=== PATIENT | female | born 1945 | race Caucasian/White ===

== ENCOUNTER 2022-12-10 15:55 | Outpatient (RCR) | payer MEDICARE, BC, SELFPAY ==
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
== END 2022-12-13 08:50 | disposition home or self-care (01) ==
PROVIDERS: Visit Provider Orthopaedic Surgery Sports Medicine
DX: M17.11 Unilateral primary osteoarthritis, right knee (principal); Z96.651 Presence of right artificial knee joint; R53.1 Weakness; M25.561 Pain in right knee; Z51.89 Encounter for other specified aftercare
CPT/HCPCS: 97110; 97162

== ENCOUNTER 2023-02-09 09:47 | Day surgery (SDC) | payer MEDICARE, BC, SELFPAY ==
[2023-02-09] VITALS (22 sets, daily range): BP systolic 100–150; BP diastolic 62–99; PULSE 68–103; RESP 14–18; TEMP 35.6–36.8; O2SAT 94–100; BMI 32.5
[2023-02-09] MEDS: SODIUM CHLORIDE 0.9 % (FLUSH) 10 ML SYRINGE IVF (10:30)
[2023-02-09] MEDS: ACETAMINOPHEN 500 MG TABLET 1000 MG PO ×3 (10:35→23:48)
[2023-02-09] MEDS: OXYCODONE (CR) 10 MG TAB.ER.12H PO (10:35)
[2023-02-09] MEDS: LACTATED RINGERS 1000 ML 1,000 ML 100 ML IV ×2 (10:35→14:02)
[2023-02-09] MEDS: CELECOXIB 200 MG CAPSULE PO (10:35)
[2023-02-09] MEDS: MIDAZOLAM HCL 1 MG/ML inj IVP (11:34)
[2023-02-09] MEDS: fentaNYL 100 MCG/2 ML inj IVP (11:34)
--- NOTE | 2023-02-09 11:45 | SUR.PREOP ---
TIME?OUT:?1134 PT/RN/MDA?VERIFICATION?OF?SURGICAL?SITE,?PROCEDURE,?AND?CONSENT OBTAINED?PRIOR?TO?INVASIVE?PROCEDURE.
--- NOTE | 2023-02-09 11:47 | P.NB_ITS ---
Nerve Block Nerve Block Time Seen by Provider: 11:40 Date Seen: 02/09/23 Type of block requested by surgeon for post-operative analgesia: geniculars Side: right Time out performed: Yes Verification of patient name: Yes Verification of date of : Yes Site marking: site marked Name of person performing procedure: Junaid Continuous monitoring Was continuous monitoring of O2 sat, B/P, glost kiln placer, recorded every 15 minutes?: Yes Procedure Checklist: sterile prep, needles and gloves Medications given in 5ml increments after negative aspiration: Ropivicaine %: 0.5 mL: 9 Needle gauge: 25 Patient tolerated procedure well: Yes Block Charges Block Charge (with Pro Fee): Genicular Nerve Block Use of Ultrasound Machine for Block: No
--- NOTE | 2023-02-09 11:47 | W.PM.NB ---
Nerve Block Nerve Block Time Seen by Provider: 11:40 Date Seen: 02/09/23 Type of block requested by surgeon for post-operative analgesia: adductor canal Side: right Time out performed: Yes Verification of patient name: Yes Verification of date of : Yes Site marking: site marked Name of person performing procedure: Junaid Continuous monitoring Was continuous monitoring of O2 sat, B/P, director energy, recorded every 15 minutes?: Yes Procedure Checklist: sterile prep, needles and gloves Ultrasound guided. Images saved: Yes Medications given in 5ml increments after negative aspiration: Ropivicaine %: 0.5 mL: 20 Needle gauge: 20 Decadron (mg): 10 Precedex (mcg): 25 Patient tolerated procedure well: Yes Additional comments: Needle noted adjacent to nerve Block Charges Block Charge (with Pro Fee): Femoral Nerve Use of Ultrasound Machine for Block: Yes- US Guidance/pain block
--- NOTE | 2023-02-09 11:47 | W.ANESCHARGE ---
Anesthesia Charges Start Date/Time Anesthesia Start Date: 02/09/23 Anesthesia Start Time: 11:53 Stop Date/Time Anesthesia Stop Date: 02/09/23 Anesthesia Stop Time: 14:44 Summary Extremes of Age - Over 70 or under 1: MDA
--- NOTE | 2023-02-09 12:13 | CRLHL7_ITS ---
For Patients: As a result of the Cures Act, medical imaging exams and procedure reports are released immediately into your electronic medical record. You may view this report before your referring provider. If you have questions, please contact your health care provider. Indication: Postop Technique: Two views right knee Findings/Impression: Hardware from a right total knee arthroplasty is in satisfactory position. Bone alignment is normal. No sign of acute fracture. Postop changes are within normal limits. Dictated by Josesito Davidson MD @ 02/10/2023 10:47:14 AM (Electronically Signed)
[2023-02-09] MEDS: CEFAZOLIN 2 GM in 0.9 % SODIUM CHLORIDE Mini-bag 100 ML IVPB ×2 (12:22→18:19)
[2023-02-09] MEDS: TRANEXAMIC ACID 100 MG/ML INJ 1000 MG IV (12:23)
--- NOTE | 2023-02-09 12:43 | P.ANES_ITS ---
Anesthesia Charges Start Date/Time Anesthesia Start Date: 02/09/23 Anesthesia Start Time: 11:53 Stop Date/Time Anesthesia Stop Date: 02/09/23 Anesthesia Stop Time: 14:44 Summary Extremes of Age - Over 70 or under 1: HERBARIUM WORKER
--- NOTE | 2023-02-09 13:45 | P.ORPRC_ITS ---
Procedure Note Date of procedure: 02/09/23 Procedure: PREOPERATIVE DIAGNOSIS: 1. Right knee osteoarthritis, primary, severe POSTOPERATIVE DIAGNOSIS: 1. Right knee osteoarthritis, primary, severe PROCEDURE: 1. Right total knee arthroplasty SURGEON: Duran Keating MD. POT LINING SUPERVISOR: Bill Bay PA-C - Of note, a skilled marketing administrative assistant was critical for this case to aid in patient positioning, tissue retraction, limb manipulation/positioning, and closure. ANESTHESIA: Spinal anesthetic IMPLANTS: DePuy J&J all cemented TKA - Attune PS femur size 4 narrow, size 3 tibia, 5 poly spacer, 32 mm patella TOURNIQUET: 90 min at 300 torr EBL: 50 ml COMPLICATIONS: None evident INDICATIONS: The patient is a pleasant 77-year-old female who has experienced severe right knee pain and difficulty bearing weight. Workup included x-rays which revealed severe osteoarthrosis in the knee. Given the deformity, the dysfunction, and the pain, as well as the failure of nonoperative management, recommendation was made for surgery. FINDINGS: Full-thickness chondral loss broadly throughout the lateral compartment given the valgus knee. Degenerative lateral and medial meniscus pathology. Significant patellofemoral chondromalacia and to lesser degree medial compartment chondromalacia present moderate effusion upon entering the joint. DESCRIPTION OF PROCEDURE: Following a thorough discussion of risks, benefits, and alternatives consent was obtained and the right knee was marked. The patient was brought to the operating room and placed supine on the operating table. Induction of anesthesia was undertaken. 2 g IV Ancef and 1 g tranexamic acid was administered within 1 hr of incision preoperatively. Proper time-out was performed identifying proper patient, site, procedure. The operative extremity was prepped and draped in the appropriate sterile fashion using ChloraPrep after the patient was positioned supine with all bony prominences well padded. A longitudinal, anterior, midline skin incision was made starting approximately 3cm proximal to the superior pole of the patella and advanced distal to the tibial tubercle. A median parapatellar arthrotomy was created. A medial subperiosteal sleeve was created with knife, leyva elevator and curved osteotome. The retropatellar fatpad was resected and the synovium in the suprapatellar pouch excised to visualize the anterior femoral cortex. Femoral preparation was performed via an intramedullary guide. Step drill allowed access into the femoral canal. The distal cutting guide was placed with 6 ? of valgus and 12 mm cut on the distal femur. Femur was sized using a posterior referencing guide as well as assessing the trans epicondylar axis and Whitesides line given the valgus knee. Ultimately, 3? of external rotation was found to be most appropriate to match the trans epicondylar axis and perpendicular Whitesides line providing appropriate rotation to the femur. This found have a best fit with the sizing noted above. The 4 in 1 cutting block was then placed, and the distal femur shaped accordingly. The box cut was then created and the trial implant inserted to confirm appropriate fit. We turned our attention to the proximal tibia. Extramedullary guide was utilized for cutting with the goal of being 90 degree cut from the mechanical axis of the tibia in the varus/valgus plane utilizing tibial crest as the primary alignment. Initially a 4 mm resection was performed from the medial tibial plateau. An additional 2 mm to require resection. Ultimately, balancing was achieved in both flexion and extension in both varus and valgus. The knee was able to achieve full extension as well comfortably. The patella was initially measured and found have a thickness of 22 mm. It was resected back to approximately 14 mm. It was sized to be a best fit with as noted above. This was drilled, trial placed. All trials were placed and found to have an excellent stability and balance. At this stage, trial implants were removed, the knee was thoroughly irrigated with normal saline, and the cement was mixed. After irrigation, the knee was thoroughly dried, and cement placed, with the real tibial and femoral implants placed along with the patella. Trial poly spacer was placed and confirmed to have excellent range of motion and full extension, and the real poly spacer opened and inserted. All extra cement was removed, and a 3 min Betadine soak performed. Finally, a final irrigation round with normal saline was performed. Closure performed with 0 Vicryl and #0 Stratafix for the quad tendon/retinaculum. 2-0 Vicryl for the subcutaneous and 4-0 Stratafix for subcuticular closure. Dressings were applied and the patient was awoken from anesthesia after the tourniquet deflated and transferred the PACU in stable condition. A skilled marketing administrative assistant was critical for this case to aid in patient positioning, tissue retraction, bone exposure, limb manipulation/positioning, patient safety, and closure. PLAN: 1. Weight bear as tolerated operative extremity. 2. 23 hr perioperative antibiotics. 3. Ice. 4. PT/OT consults for ambulation assistance/mobility education. 5. Social work consult for discharge planning. 6. DVT prophylaxis with at SCDs, Ramses Hose, and aspirin twice daily.
--- NOTE | 2023-02-09 15:20 | SUR.PHASEI ---
patient met discharge criteria per anesthesia
--- NOTE | 2023-02-09 16:48 | P.IMCN_ITS ---
Date of Consult Patient: Other Consult date: 02/09/23 Requesting Physician: Orthopedics Primary Care Provider: Not a Local Provider Consult Narrative Reason for consult: post op R TKA, HTN care Narrative: Saumya Clements is a 77 year old woman with advanced right gonarthrosis who undergoes an elective right total knee arthroplasty today with Dr. Duran Mckeon today without any apparent complications. Heretofore she had been using CBD supplement as needed for knee discomfort, in addition to more traditional measures. Discomfort not responsive to various nonpharmacologic and pharmacologic interventions and thus she elected to proceed with the total knee arthroplasty today. Review of Systems Status of ROS: Reports: 10 or more systems reviewed and unremarkable except as noted in History and below PFSH [facility] Medical History (Updated 02/09/23 @ 17:08 by Marciano Junior MD) Urge urinary incontinence ?N39.41 - Urge incontinence (ICD-10) Primary osteoarthritis of both knees ?M17.0 - Bilateral primary osteoarthritis of knee (ICD-10) Arthropathy of left hip ?M16.12 - Unilateral primary osteoarthritis, left hip (ICD-10) Insomnia ?G47.00 - Insomnia, unspecified (ICD-10) Hypertension ?I10 - Essential (primary) hypertension (ICD-10) Breast cancer ?C50.919 - Malignant neoplasm of unspecified site of unspecified female breast (ICD-10) Surgical History (Updated 02/09/23 @ 16:41 by Marciano Junior MD) Hx of hernia repair ?Z98.890 - Other specified postprocedural states (ICD-10) ?Z87.19 - Personal history of other diseases of the digestive system (ICD-10) History of partial mastectomy of right breast (~2013) ?Z90.11 - Acquired absence of right breast and nipple (ICD-10) Status post total replacement of right hip (~1997) ?Z96.641 - Presence of right artificial hip joint (ICD-10) Status post total replacement of left hip (~2006) ?Z96.642 - Presence of left artificial hip joint (ICD-10) History of lumbar surgery ?Z98.890 - Other specified postprocedural states (ICD-10) History of carpal tunnel release (~2013) ?Z98.890 - Other specified postprocedural states (ICD-10) History of right shoulder replacement (~06/2013) ?Z96.611 - Presence of right artificial shoulder joint (ICD-10) History of left knee replacement (10/28/21) ?Z96.652 - Presence of left artificial knee joint (ICD-10) Family History (Updated 02/09/23 @ 16:42 by Marciano Junior MD) Brother ETOH abuse High blood pressure Father Rheumatoid arthritis Myocardial infarction Mother Breast cancer TIA (transient ischemic attack) Social History (Updated 02/09/23 @ 16:44 by Marciano Junior MD) Narrative: . Retired. Lives with . Never used tobacco products. Does not drink alcoholic beverages. What is your current living situation?: I presently have a place to live In the past 12 months, utilities in danger of being shut off: no In the past 12 mos, have been you worried that your food would run out before you had money to buy more?: never true In the past 12 mos, the food you bought just didn't last and you didn't have money to buy more?: never true Smoking Status: Never smoker Do you use any of these nicotine containing products: None How often do you have a drink containing alcohol: never How many standard drinks containing alcohol do you have on a typical day: 1 or 2 How often do you have six or more drinks on one occasion: Never AUDIT-C Alcohol total score: 0 Non-prescribed substance use: denies use Caffeine: No How often does anyone, including family, friends and others, physically hurt you : never How often does anyone, including family, friends and others, insult or talk down to you: never How often does anyone, including family, friends and others, threaten you with harm: never How often does anyone, including family, friends and others, scream or curse at you: never service: No Meds Home Medications and Allergies Home Medications Medication Instructions Recorded Confirmed Type aspirin 81 mg tablet,delayed 81 mg PO DAILY 11/11/22 02/09/23 History release multivitamin 1 tab PO DAILY 11/11/22 02/09/23 History olmesartan 40 mg tablet 40 mg PO DAILY 11/11/22 02/09/23 History paroxetine HCl 40 mg tablet 40 mg PO DAILY 11/11/22 02/09/23 History Allergies Allergy/AdvReac Type Severity Reaction Status Date / Time Penicillins Allergy Rash Verified 02/09/23 10:13 Exam Narrative: Exam Narrative: Examined patient in her hospital room. She appears comfortable and in no acute distress. Vision and hearing are grossly normal. Alert and oriented to self, place, time, situation. Friendly, cooperative, articulate. Mood and affect are congruent. Neck is supple. Midline trachea. Normal thyroid. No JVD or hepatojugular reflux. No carotid bruits. No head and neck lymphadenopathy. Lungs are clear to auscultation after deep breathing. Chest wall excursions are full. No CVA tenderness. Heart tones with regular rhythm, normal S1-S2. Abdomen with active bowel sounds, soft, nontender. No organomegaly masses. No rebound or guarding. Moves all 4 extremities already. No focal motor neurologic deficits. Const: Vital Signs, click to edit/add: Vital Signs - 24 hr 02/09/23 10:41 02/09/23 11:35 02/09/23 11:40 Temperature 96.8 F L Pulse Rate 95 88 84 Pulse Rate [Pulse Oximeter] Respiratory Rate 16 16 16 Blood Pressure 149/70 H 137/74 137/69 Blood Pressure [Le ft Arm] Pulse Oximetry 95 100 100 Oxygen Delivery Me thod Room Air Nasal Cannula Nasal Cannula Oxygen Flow Rate 2 2 02/09/23 14:41 02/09/23 14:45 02/09/23 14:50 Temperature 98.3 F 98.3 F 98.3 F Pulse Rate 82 82 79 Pulse Rate [Pulse Oximeter] Respiratory Rate 16 14 14 Blood Pressure 136/75 138/85 113/74 Blood Pressure [Le ft Arm] Pulse Oximetry 96 96 96 Oxygen Delivery Me thod Nasal Cannula Nasal Cannula Nasal Cannula Oxygen Flow Rate 5 5 5 02/09/23 14:55 02/09/23 15:00 02/09/23 15:05 Temperature 98.3 F 98.3 F 98.3 F Pulse Rate 80 79 71 Pulse Rate [Pulse Oximeter] Respiratory Rate 15 17 14 Blood Pressure 125/73 123/71 127/88 Blood Pressure [Le ft Arm] Pulse Oximetry 97 96 96 Oxygen Delivery Me thod Nasal Cannula Nasal Cannula Room Air Oxygen Flow Rate 5 5 0 02/09/23 15:10 02/09/23 15:20 02/09/23 15:20 Temperature 97.3 F L 97.1 F L 97.1 F L Pulse Rate 80 83 Pulse Rate [Pulse Oximeter] 83 Respiratory Rate 15 16 16 Blood Pressure 135/88 Blood Pressure [Le ft Arm] 133/81 133/81 Pulse Oximetry 99 99 Oxygen Delivery Me thod Room Air Room Air Room Air Oxygen Flow Rate 0 0 0 02/09/23 15:30 02/09/23 15:45 02/09/23 16:00 Temperature 97.0 F L 97.2 F L 97.1 F L Pulse Rate Pulse Rate [Pulse Oximeter] 68 69 80 Respiratory Rate 16 16 16 Blood Pressure Blood Pressure [Le ft Arm] 133/74 139/68 132/89 Pulse Oximetry 99 94 95 Oxygen Delivery Me thod Room Air Room Air Room Air Oxygen Flow Rate 0 0 0 02/09/23 16:15 Temperature 97.1 F L Pulse Rate Pulse Rate [Pulse Oximeter] 80 Respiratory Rate 16 Blood Pressure Blood Pressure [Le ft Arm] 115/64 Pulse Oximetry 95 Oxygen Delivery Me thod Room Air Oxygen Flow Rate 0 Documenting provider has reviewed patient's vital signs: yes Assessment and Plan Assessment and plan (1) Primary osteoarthritis of both knees: Status: Acute (2) Osteoarthritis of right knee: Problem comment: Severe, genu valgum position Status: Acute (3) Status post total right knee replacement: Problem comment: 02/09/2023, Dr. Duran Mckeon, [facility]. Status: Acute (4) Hypertension: Status: Acute Plan 1. Reviewed impression with patient. 2. Will follow with Orthopedic surgery while patient is in the hospital. 3. Agree with perioperative antibiotic prophylaxis. 4. Agree with postoperative venous thromboembolism prophylaxis. 5. Hold her angiotensin receptor faustino for now given her soft blood pressures. 6. Completed her hospitalist portion of the discharge orders. 7. Patient agreeable with above stated plans and recommendations.
--- NOTE | 2023-02-09 18:30 | PC.NURSE ---
Pt arrived to Med/Surg around 1520. Pt alert and oriented at this time. After assessment Pt stated she was tired and napped until 1645. Pt up with assist of two and walker with gait belt for first time out of bed. Pt tolerated well and then was a one assist-SBA with walker and gait belt. Pt up in chair. Pt voided. Pt has started intaking fluids and has tolerated a regular diet. Pt had no complaints of pain. Dressing dry and intact.?
[2023-02-09] MEDS: OXYCODONE 5 MG TABLET PO ×2 (19:31→20:43)
[2023-02-09] MEDS: SENNOSIDES 1 TAB TABLET 2 TAB PO (21:44)
[2023-02-09] MEDS: ASPIRIN 81 MG TABLET EC PO (21:44)
[2023-02-09] MEDS: LORazepam 0.5 MG TABLET PO (21:45)
[2023-02-10] MEDS: CEFAZOLIN 2 GM in 0.9 % SODIUM CHLORIDE Mini-bag 100 ML IVPB ×2 (02:18→10:15)
[2023-02-10 03:00] VITALS: BP 165/83; PULSE 92; RESP 14; TEMP 36.1; O2SAT 95
[2023-02-10] MEDS: ACETAMINOPHEN 500 MG TABLET 1000 MG PO (05:53)
--- NOTE | 2023-02-10 06:00 | PC.NURSE ---
Alert and oriented x 4. Dressing to right knee clean, dry and intact. Right knee edematous, CMS intact with mild weakness to right lower extremity. Pain is well managed with PRN oxycodone and scheduled tylenol. Transfers with SBA with walker and gait belt. Up x 2 to bathroom, continent of bladder and bowel. Slept well through the night.
[2023-02-10 06:50] LABS: Basophils Percent Auto 0.1 % (0.0-3.0); Hemoglobin* 13.9 gm/dL (12.0-16.0); Immature Granulocytes Pct Auto 0.3 %; Mean Corpuscular HGB Conc 33 gm/dL (32-36); Mean Corpuscular Hemoglobin 32 pg (26-34); Mean Corpuscular Volume 96 fL (80-100); Monocytes Percent Auto 5.1 % (0.0-11.0); Neutrophils Percent Auto 86.5 % (42.0-72.0); Platelet Count* 439 K/uL (140-440); RDW Coefficient of Variation % 13.5 % (11.5-15.5); Red Blood Count 4.36 m/uL (4.00-5.20); White Blood Count* 14.37 K/uL (4.50-11.00)
[2023-02-10 06:56] LABS: Potassium* 4.4 mmol/L (3.6-5.1); Sodium* 138 mmol/L (135-149)
[2023-02-10 06:59] LABS: Blood Urea Nitrogen* 26 mg/dL (7-30); Est. Creatinine Clearance* 37.26; Estimated Glomerular Filt Rate 58 ml/min
[2023-02-10 07:11] LABS: Slide Review Reflex No
[2023-02-10 07:31] VITALS: O2SAT 98
[2023-02-10 07:41] VITALS: BP 184/92; PULSE 94; RESP 18; TEMP 36.4; O2SAT 98
[2023-02-10] MEDS: OXYCODONE 5 MG TABLET PO (07:46)
[2023-02-10] MEDS: PARoxetine 20 MG TABLET 40 MG PO (08:30)
[2023-02-10] MEDS: ASPIRIN 81 MG TABLET EC PO (08:30)
[2023-02-10] MEDS: SENNOSIDES 1 TAB TABLET 2 TAB PO (08:30)
[2023-02-10 10:59] VITALS: BP 170/89; PULSE 92; RESP 18; TEMP 36.4; O2SAT 95
--- NOTE | 2023-02-10 12:01 | PC.NURSE ---
Pt alert and oriented. Pt had complaints of pain of 1; See EMAR for intervention. Pt SBA with walker and gait belt. Pt's dressing dry and intact. Pt had HTN in am; home mediation for HTN not in stock; PA instructed Pt to take medication at home after discharge. RN reinforced this during discharge instructions.
--- NOTE | 2023-02-10 15:41 | PM.ORPN ---
Subjective Subjective Date Seen: 02/10/23 Principal diagnosis: Status postop day 1 right total knee arthroplasty Interval history: Patient reports doing well. No acute events over night. Reports the nerve block did not work as well as her left TKA. Pain managed with scheduled and PRN medications, ice. DVT prophylaxis: 81 mg aspirin by mouth twice daily, bilateral knee high Ramses stockings, SCDs, walking. Denies fevers, chills, aches, N/V, CP, SOB/DOMINIQUE, or lightheadedness. Ortho Exam Narrative Exam Narrative: -Patient appears comfortable; no apparent acute distress -Alert and oriented times 3 -Operative knee mildly swollen; soft tissues supple; no ecchymosis; no erythematous streaking Warmth appropriate -Surgical dressing clean, dry, intact; no drainage -Bilateral calfs soft; no significant swelling, edema, tenderness, erythema, discoloration, warmth, or palpable cords -2+ DP/PT pulses, intact dermatomes and myotomes distally (5/5 strength) Const Vital Signs, click to edit/add: Vital Signs - 24 hr 02/09/23 15:45 02/09/23 16:00 02/09/23 16:15 Temperature 97.2 F L 97.1 F L 97.1 F L Pulse Rate [Pulse Oximeter] 69 80 80 Respiratory Rate 16 16 16 Blood Pressure [Left Arm] 139/68 132/89 115/64 Pulse Oximetry 94 95 95 Oxygen Delivery Method Room Air Room Air Room Air Oxygen Flow Rate 0 0 0 02/09/23 16:45 02/09/23 17:15 02/09/23 18:15 Temperature 97.2 F L 97.2 F L 97.8 F Pulse Rate [Pulse Oximeter] 86 84 99 Respiratory Rate 16 16 16 Blood Pressure [Left Arm] 136/75 145/86 H 150/99 H Pulse Oximetry 96 95 98 Oxygen Delivery Method Room Air Room Air Room Air Oxygen Flow Rate 0 0 0 02/09/23 19:15 02/09/23 20:15 02/09/23 21:15 Temperature 97.8 F 96.9 F L 96.0 F L Pulse Rate [Pulse Oximeter] 103 H 94 89 Respiratory Rate 18 16 16 Blood Pressure [Left Arm] 143/87 H 126/72 109/65 Pulse Oximetry 98 97 Oxygen Delivery Method Room Air Room Air Room Air Oxygen Flow Rate 02/09/23 23:00 02/09/23 23:00 02/10/23 03:00 Temperature 96.0 F L 96.9 F L Pulse Rate [Pulse Oximeter] 87 92 Respiratory Rate 16 14 Blood Pressure [Left Arm] 100/62 165/83 H Pulse Oximetry 95 95 95 Oxygen Delivery Method Room Air Room Air Oxygen Flow Rate 02/10/23 07:31 02/10/23 07:41 02/10/23 10:59 Temperature 97.6 F 97.6 F Pulse Rate [Pulse Oximeter] 94 92 Respiratory Rate 18 18 Blood Pressure [Left Arm] 184/92 H 170/89 H Pulse Oximetry 98 98 95 Oxygen Delivery Method Room Air Room Air Oxygen Flow Rate Assessment and Plan Assessment and plan (1) Primary osteoarthritis of both knees: Status: Acute (2) Osteoarthritis of right knee: Problem details: Severe, genu valgum position Status: Acute (3) Status post total right knee replacement: Problem details: 02/09/2023, Dr. Duran Mckeon, [facility]. Status: Acute (4) Hypertension: Status: Acute Plan - Complete 23 hour perioperative antibiotics. - PT/OT consult for education and assistance. - Social work consult for discharge planning - Prescribed analgesics as needed - DVT prophylaxis: 81 mg aspirin by mouth twice daily, bilateral knee high Ramses Hose stockings and SCDs - Anticipation is for discharge to home with spouse today 02/10/2023 if the patient remains medically stable, pain is controlled, and they are safe with mobilization.
== END 2023-02-10 11:25 | disposition home or self-care (01) ==
LOC: OR 09:49 → MEDSURG 09:56
PROVIDERS: Visit Provider Orthopaedic Surgery Sports Medicine
PROC: (CPT 27447; principal; 2023-02-09 11:30)
DX: M17.11 Unilateral primary osteoarthritis, right knee (principal); G89.18 Other acute postprocedural pain; I10 Essential (primary) hypertension
CPT/HCPCS: 27447; 01402; 36415; 64447; 64454; 73560; 76942; 82565; 84132; 84295; 84520; 85025; 94761; 97110; 97116; 97161; 97165; 97535; 99100; A9270; C1776; J0690; J2250; J2371; J2405; J2704; J3010; J7120

== ENCOUNTER 2025-05-09 13:57 | Outpatient (CLI) | payer MEDICARE, BC, SELFPAY | END 2025-05-09 13:58 | disposition home or self-care (01) | LOC: CT 13:59 | PROVIDERS: PCP Family Medicine; Visit Provider Orthopaedic Surgery Sports Medicine | DX: M19.012 Primary osteoarthritis, left shoulder (principal) | CPT/HCPCS: 73200 ==